=== PATIENT | male | born 1940 | race Caucasian/White ===

== ENCOUNTER → 2016-09-19 | Outpatient (CLI) | payer OTHER ==
[~2016-09-19] MED LIST: ASPEC81 PO
--- NOTE | 2016-09-20 06:01 | PAP/PSG TECHNICIAN REPORT ---
[facility] Aviation Safety Equipment Technician Polysomnogram Report Study name: None Report date: 09/20/2016 Study date: 09/19/2016 Referring Physician: Caroline MARI M.D. Name: SHASHA ELLISON Interpreting Physician: Christoph Mari M.D. Date of : 1940 Aviation Safety Equipment Technician: Magde Garay RPSGT. Sex: Male Age: 75 StudyType: PSG Weight: 180 lbs 15.25 inches Height: 75 years, Height 5' 8.5" Neck Circum: BMI: 26.97 Medications: NORVASC 5 MG, ASPIRIN 81 MG Patient History PATIENT HAD A SLEEP STUDY DONE IN 2011 AND WAS POSITIVE FOR [place] WITH AN AHI OF 18.6/HR. 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 ESS = 2 RM 7 Parameters Monitored NPSG: E1-M2, E2-M1, Fp1-M2, Fp2-M1, F3-M2, F4-M2, F4-M1, C3-M2, C4-M2, C4-M1, O1-M2, O2-M2, O2-M1, T3-M2, T4-M1, P3-M2, P4-M1, CHIN1, CHIN2, HR, EKG, Legs, PFLOW, SNOR, FLOW, CFLOW, Tidal Volume, THOR, ABDO, SpO2, PLTH, CPRESS, ETCO2 Wave, ETCO2, pH Sleep Architecture Sleep Stages Time at Lights Off 9:04:36 PM STAGES Time (min.) TST (%) Time at Lights On 4:14:36 AM Wake 188.5 -- Total Recording Time (TRT) 430.50 min. N1 48.0 20 Total Sleep Period (TSP) 403.5 min. N2 136.0 56 Total Sleep Time (TST) 241.5min. N3 20.5 8 Awake Time 189.0 min. REM 37.0 15 Wake after Sleep Onset 166.0 min. Sleep Efficiency (SE) 56 % Sleep Onset Latency (WILMER) 22.5 min. Number of Stage 1 Shifts None Awakenings 52 Stage Changes 146 Number of REM periods 4 REM 37.0 15 REM Latency 88.5 min. NREM 204.5 85 Body Position Analysis Supine Right Left Side Prone Vertical Total Sleep Time (min.) 249.9 0.0 145.5 145.50 0.0 0.0 Total Sleep Time (%) 40% 0% 60% 60 0% N/A% Total Sleep Time REM (min.) 0.0 0.0 37.0 None 0.0 0.0 Total Sleep Time NREM (min.) 96.0 0.0 108.5 None 0.0 0.0 Intermittent Wake (min.) 153.9 0.0 34.6 None 0.0 0.0 Total Sleep Period (%) 56% None None None None None Arousals Myoclonus (PLM) * Events Count Index Events Count Index Spontaneous 48 12 Events Awake (PLMW) 277 88.2 Respiratory 68 18.4 Events Asleep w/ Arousal (PLMA) 23 5.7 PLM 22 6 Events Asleep w/o Arousal (PLMS) 296 73.5 Snoring 13 3 Total Asleep 319 79.3 Total 151 38 Total 596 83 Respiratory Analysis * CA OA MA CH H RERA Total Count 5 75 13 0 2 1 95 Index 1.2 18.6 3.2 0 0.5 0 23.9 Mean Duration 18.3 20.3 23.1 0.00 16.0 15.3 20.4 Longest Duration 23.6 36.6 29.6 0.00 29.6 15.3 36.6 Respiratory Event Summary Total Supine ~Supine Right Left Prone REM NREM Apneas Count 93 93 0 N/A 0 N/A 0 93 Index 23.1 58 0 N/A 0.0 N/A 0 27 Hypopneas (4% Desat) Count 2 2 0 N/A 0 N/A 0 2 Index 0.5 1.3 0 N/A 0.0 N/A 0.0 0.6 Apneas & All Hypopneas Count 95 95 0 N/A 0 N/A 0 95 Index 23.6 59 0 N/A 0 N/A 0.0 27.9 Respiratory Events (Practical Nurse Clinical Coordinator+All Hyp+RERA) Count 95 96 0 N/A 0 N/A 0 95 Index 23.9 60 0 N/A 0.0 N/A 0.0 28.2 Respiratory Related Arousal Count 68 96 0 N/A 0 N/A 0 74 Index 18.4 46 0 N/A 0 N/A 0 22 Snoring Analysis Supine Right Left Prone REM NREM Total Snore duration 4.1 min Snores count 118 N/A 21 N/A 8 131 139 Snore mean duration 1.8 Sec Snores index 74 N/A 9 N/A 13.0 38.4 34.5 TST with snoring (%) 1.7% Desaturation Event Summary: Minimum %SpO2 Event Count Mean/Min/Max Duration(sec.) Desaturation Index % Time In Bed > 90 21 31.3 / 10.5 / 58.5 3.0 99.2 86 - 90 0 N/A 0.0 0.7 81 - 85 0 N/A 0.0 0.1 76 - 80 0 N/A 0.0 0.0 71 - 75 0 N/A 0.0 0.0 66 - 70 0 N/A 0.0 0.0 61 - 65 0 N/A 0.0 0.0 56 - 60 0 N/A 0.0 0.0 51 - 55 0 N/A 0.0 0.0 < 50 0 N/A 0.0 0.0 Total REM NREM Awake <50% 0.0 min. 0.0 min. 0.0 min. 0.0 min. 51 - 60% 0.0 min. 0.0 min. 0.0 min. 0.0 min. 61 - 70% 0.0 min. 0.0 min. 0.0 min. 0.0 min. 71 - 80% 0.0 min. 0.0 min. 0.0 min. 0.0 min. 81 - 90% 3.3 min. 0.0 min. 1.4 min. 1.9 min. 91 - 100% 415.3 min. 37.0 min. 203.1 min. 175.2 min. Average 93 93 93 93 Minimum SpO2 81 91 89 81 Desaturation Event Index 2.9 0.0 5.0 1.3 # Desat. Events below 89% N/A N/A N/A N/A Time(%) with Saturation below 89% 0.1 0.0 0.0 0.1 Time(min.) with Saturation below 89% 0.3 0.0 0.0 0.3 Time (mins) REM (mins) NREM (mins) % of TST SpO2 Below 90% 5 N/A N5 0.0 SpO2 Below 88% 0 0 0 0 Heart Rate Analysis Min (bpm) Max (bpm) Average (bpm) Awake 53 196 60 NREM 51 66 58 REM 46 62 53 Overall 46 66 57 Supplemental O2 Values Minimum O2 level: None Value Start Time End Time Aviation Safety Equipment Technician Comments Mr. Ellison slept in the left and supine positions. No cardiac arrhythmia noted. Leg movements noted. No bruxism noted. Snoring was noted and scored as a 2 on a scale of 1 through 5. (0=no snoring, 5=snoring loud enough to be heard through a closed door or down the long way) Mr. Ellison awoke to use the restroom 3 times during the night. Mr. Ellison stated I did not sleep as well as I do when I am in my own bed. Patient displayed aggressive and hostile behavior shortly after arrival to the sleep lab. The patient asked me if he was going to see the doctor in the morning. I told him that most patients generally would have their results within a couple weeks or so but usually not in the morning of their study. The patient said that he was told by the doctor and her nurse that he was going to be seen by the doctor in the morning after his sleep study. After this he became very angry with me and pointed his finger in my face yelling that he will see the doctor in the morning. The patient did however calm down as the night went on. The patient also states that he refuses to wear a CPAP. The final report will be interpreted and signed by a sleep physician. The completed physician report will then be placed in the patient medical record. Therapy (cm H2O) 0 TIB (min.) 430.0 TST (min.) 241.5 Sleep Onset (min.) 22.5 REM Onset From Sleep (min.) 88.5 Sleep Efficiency % 56 Wakefulness (%) 44 Wakefulness (min.) 189.0 NREM 1 (%) 20 NREM 1 (min.) 48.0 NREM 2 (%) 56 NREM 2 (min.) 136.0 NREM 3 (%) 8 NREM 3 (min.) 20.5 REM (%) 15 REM (min.) 37.0 # Arousals 151 Arousal Index 38 # Snore 139 Snore Index 34.5 AHI 23.6 AHI Supine 59 AHI Non-Supine 0 NREM AHI 27.9 REM AHI 0.0 RDI 23.9 # Obstructive Apnea 75 # Central Apnea 5 # Mixed Apnea 13 # Hypopneas 2 RERAs 1 Total Respiratory Events 100 Time Below SpO2 89% (min.) 0.0 Mean NREM SpO2 (%) 93 Mean REM SpO2 (%) 93 Mean Sleep SpO2 (%) 93 Min NREM SpO2 (%) 89 Min REM SpO2 (%) 91 Position Supine (min.) 249.9 Position Non-supine (min.) 145.5 LM Index Sleep 79.3 LM Index NREM 91.5 LM Index REM 11.4 Mean Heart Rate (bpm) 57 Min Heart Rate (bpm) 46
--- NOTE | 2016-09-23 21:30 | POLYSOMNOGRAPH REPORT ---
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 He had a previous PSG in 2011, which showed an AHI of 18.6. CPAP was never started at that time. He is 29 pounds later now than he was in the past. He presents for re-testing and agrees to treatment for apnea should he have it. His [place] sleepiness scale score on the evening of this study is 2. BMI is 26.97. Following the technical and digital specifications of the [place] [employer] (AASM) a standard diagnostic polysomnogram was performed monitoring EEG, EOG, EMG (chin and leg deviations), oxygen saturation, body position, digital video, respiratory effort and airflow. The sleep Stage and event scoring was based on the AASM Manual for the Scoring of Sleep and Associated Events 2007 edition. Apneas are defined as a drop in the peak thermal sensor excursion by >90% of baseline for at least 10 seconds. Hypopneas were scored using the 4% oxygen desaturation rule ([employer]A-[employer]) and a decrease in the nasal pressure excursions by >30% of baseline for at least 10 seconds. Respiratory effort-related arousal (RERA's) is defined as a sequence of breaths lasting at least 10 seconds characterized by increasing respiratory effort or flattening of the nasal pressure waveform leading to an arousal from sleep when the sequence of breaths does not meet criteria for an apnea or hypopnea. Apnea Hypopnea index (AHI) is defined as the number of apneas and hypopneas occurring in an hour of sleep. Respiratory disturbance index (RDI) is defined as the number of apneas, hypopneas, and RERA's occurring in an hour of sleep. Mr. Ellison total sleep period time was 403.5 minutes. Total sleep time was 241.5 minutes. Sleep efficiency was 56%. Latency to sleep onset was 22.5 minutes with wake after sleep onset of 166 minutes. Total non-REM sleep time was 204.5 minutes. He spent 20% of that time in N1 sleep, 56% in N2 sleep and 8% in N3 sleep. REM latency was 88.5 minutes. Total REM sleep time was 37 minutes or 15% of total sleep time. There were 151 arousals on this test. of these arousals were spontaneous, 68 were due to respiratory events, 22 were due to periodic limb movements of sleep and 13 were due to snoring. There were 319 periodic limb movements noted on this test. Limb movement index was 79.3. Limb movement with arousal index was 5.7. There were 5 central, 75 obstructive and 13 mixed apneas. There were 2 hypopneas and 1 RERA. Apnea-hypopnea index was 23.6. Supine AHI was 59 ____ REM AHI was 0 on this test. There were 139 snoring events recorded. Total sleep time with snoring was 1.7%. Mean saturation was 93% with desaturations to 81%. Saturations were less than 89% for only 0.3 minutes of recorded time. There was no cardiac ectopy noted on this study. Heart rates ranged from a low of 46 beats per minute to a high of 66 beats per minute on this test. IMPRESSION AND PLAN: A 75-year-old male, with evidence of moderately severe sleep apnea without nocturnal hypoxemia on this sleep study. 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 He could be started on auto-titrating CPAP with pressures of 5-15 cm and a download from his machine reviewed in 1 month; both to check compliance as well as AHI and further pressure adjustments can occur at that time.
== END | disposition home or self-care (01) ==
LOC: C.NEUR 20:00
PROVIDERS: ATTEND Family Medicine
DX: G47.33 Obstructive sleep apnea (adult) (pediatric) (principal)